=== PATIENT | female | born 1990 | race Caucasian/White ===

== ENCOUNTER 2021-08-09 11:54 | Emergency (ER) | payer OTHER ==
[~2021-08-09 11:54] MED LIST: BACTRIM DS TAB1 EACH PO; TESSALON PERLE100 MG PO; ZOFRAN4 MG PO
== END 2021-08-09 12:53 | disposition left against medical advice (07) ==
LOC: FER 11:54
DX: K46.9 Unspecified abdominal hernia without obstruction or gangrene (principal); R05.9 Cough, unspecified; Z53.29 Procedure and treatment not carried out because of patient's decision for other reasons; Z28.310 Unvaccinated for COVID-19
CPT/HCPCS: 99281